=== PATIENT | male | born 1945 | race Two or more races ===

== ENCOUNTER 2024-06-14 14:40 | Emergency (ER) | payer MEDICARE ==
[~2024-06-14] VITALS: Ht 188 cm; Wt 90.7 kg
[2024-06-14] MEDS ORDERED: CEPHALEXIN (14:59)
[2024-06-14] MEDS ORDERED: ISONIAZID (14:59)
[2024-06-14] MEDS ORDERED: SULFAMETHOXAZOLE (14:59)
[2024-06-14] MEDS ORDERED: COLCHICINE (14:59)
[2024-06-14] MEDS ORDERED: DELTASONE (14:59)
[2024-06-14] MEDS ORDERED: CRESTOR (14:59)
[2024-06-14] MEDS ORDERED: MYCOPHENOLATE MOFETIL (14:59)
[2024-06-14 15:03] LABS: CALCIUM 8.9 mg/dL (8.5-10.1); CARBON DIOXIDE 23 mmol/L (21-32); CHLORIDE 97 mmol/L (98-107); CREATININE 1.8 mg/dL (0.6-1.3); GLUCOSE 130 mg/dL (74-106); POTASSIUM 4.5 mmol/L (3.5-5.1); SODIUM SERUM 130 mmol/L (136-145); UREA NITROGEN, BLOOD 25 mg/dL (7-18)
[2024-06-14 15:04] LABS: BASOPHILS % (AUTO) 0.3 % (0.0-2.0); EOSINOPHILS % (AUTO) 0.1 % (0.0-7.0); HEMATOCRIT 40.1 % (36.7-47.1); HEMOGLOBIN 13.2 g/dL (12.5-16.3); LYMPHOCYTES # (AUTO) 0.3 K/uL (0.8-4.8); LYMPHOCYTES % (AUTO) 15.3 % (20.5-51.5); MEAN CORPUSCULAR HEMOGLOBIN 27.7 uug (23.8-33.4); MEAN CORPUSCULAR HGB CONC 33 g/dL (32.5-36.3); MEAN CORPUSCULAR VOLUME 84.3 fL (73.0-96.2); MONOCYTES % (AUTO) 48.7 % (0.0-11.0); NEUTROPHILS # (AUTO) 0.8 K/uL (1.8-8.9); NEUTROPHILS % (AUTO) 35.6 % (38.5-71.5); PLATELET COUNT (AUTO) 200 K/uL (152-348); RED BLOOD CELL COUNT(AUTO) 4.76 MIL/uL (4.06-5.63); RED CELL DISTRIBUTION WIDTH 16.1 % (12.1-16.2); WHITE BLOOD COUNT (AUTO) 2.1 K/uL (3.6-10.2)
[2024-06-14 15:05] LABS: DIFFERENTIAL COMMENT 1
[2024-06-14 15:46] LABS: ALBUMIN 3.1 g/dL (3.4-5.0); BILIRUBIN,DIRECT 0.3 mg/dL (0.0-0.2); BILIRUBIN,TOTAL 1.1 mg/dL (0.2-1.0); TOTAL PROTEIN, SERUM 7.2 g/dL (6.4-8.2)
[2024-06-14 15:51] LABS: BAND % (MANUAL) 6 % (0-10); NEUTROPHILS % (MANUAL) 36 % (42-75)
[2024-06-14 15:52] LABS: ANISOCYTOSIS 1+; LYMPHOCYTES % (MANUAL) 15 % (20-40); MONOCYTES % (MANUAL) 43 % (2-10); PLATELET ESTIMATE ADEQUATE
[2024-06-14] MEDS ORDERED: VANCOMYCIN IV 200 ML ONE (17:26)
[2024-06-14] MEDS ORDERED: CEFEPIME HCL 1 G VIAL ONE (17:26)
[2024-06-14] MEDS: IV NORMAL SALINE 1000 ML BAG IV ONE (17:30)
[2024-06-14] MEDS: CEFEPIME HCL 1 G in IV DEXTROSE 5% 50 ML IV ONE (17:30)
[2024-06-14 17:31] LABS: *BILIRUBIN,URIN NEGATIVE (NEGATIVE); *BLOOD, URINE 2+ (NEGATIVE); *CLARITY,URINE CLEAR (CLEAR); *COLOR,URINE YELLOW (YELLOW); *KETONES,URINE NEGATIVE (NEGATIVE); *PROTEIN,URINE 2+ (NEGATIVE); LEUKOCYTE ESTERASE ,URINE NEGATIVE (NEGATIVE); NITRITE, URINE NEGATIVE (NEGATIVE); UGLUCOSE NEGATIVE (NEGATIVE)
[2024-06-14 17:33] LABS: WBC,URINE 0-3 /HPF (0-3)
[2024-06-14] MEDS: VANCOMYCIN IV 1,000 MG in IV DEXTROSE 5% 250 ML IV ONE (18:29)
[2024-06-14] MEDS: ACETAMINOPHEN 500 MG TABLET PO ONE (18:30)
[2024-06-14] MEDS ORDERED: ACETAMINOPHEN 500 MG TABLET ONE (18:32)
[2024-06-14] MEDS ORDERED: IV NS 1000 ML 1,000 ML IV PRN (19:45)
[2024-06-14] MEDS ORDERED: ONDANSETRON 4 MG/2 ML VIAL IV PRN (19:45)
[2024-06-14] MEDS ORDERED: MEROPENEM 500 MG in IV NORMAL SALINE 50 ML IV SCH (19:45)
[2024-06-14] MEDS ORDERED: ACETAMINOPHEN 325 MG TABLET PO PRN (19:45)
[2024-06-14] MEDS ORDERED: ENOXAPARIN SODIUM 30 MG/0.3 ML DISP.SYRIN SQ SCH (19:45)
[2024-06-14] MEDS ORDERED: REMEDY ESSENTIAL ZINC PASTE 113 GM TP PRN (19:45)
[2024-06-14] MEDS ORDERED: MYCOPHENOLATE MOFETIL 250 MG CAPSULE PO SCH (21:00)
[2024-06-14] MEDS ORDERED: MEROPENEM 500 MG in IV NORMAL SALINE 50 ML IV ONE (22:00)
[2024-06-14 22:40] VITALS: O2SAT 97
[2024-06-15] MEDS ORDERED: predniSONE 20 MG TABLET PO SCH (08:00)
== END 2024-06-14 23:46 | disposition short-term general hospital (02) ==
LOC: ER 14:40 → TELE3 19:02 → UNDOADMIN 19:02 → ER 23:46
DX: R50.9 Fever, unspecified (principal); R00.0 Tachycardia, unspecified; D72.819 Decreased white blood cell count, unspecified; R65.10 Systemic inflammatory response syndrome (SIRS) of non-infectious origin without acute organ dysfunction; N18.9 Chronic kidney disease, unspecified; Z20.822 Contact with and (suspected) exposure to COVID-19; Z79.899 Other long term (current) drug therapy; Z60.2 Problems related to living alone
CPT/HCPCS: 99291; 96365; 71045; 96367 ×2; 87426; 87804 ×2; 80076; 80048; 81001; 85025; 84145; 85730; 87040 ×2; 87186; 84484 ×3; 36415; 93005; 83605; 87086; 85007; J0692; J3370; J7040 ×3; 70030-TC; A9150; J2185; J7517